=== PATIENT | male | born 1960 | race Caucasian/White ===

== ENCOUNTER 2023-01-09 13:41 | Outpatient (CLI) | payer BC, SELFPAY ==
--- NOTE | 2023-01-09 14:28 | ECG_ITS ---
Measurements Intervals [place] Rate: 78 P: 40 MO: 153 QRS: -26 QRSD: 93 T: 3 QT: 371 QTc: 423 Interpretive Statements SINUS RHYTHM WITH OCCASIONAL VENTRICULAR PREMATURE COMPLEXES POSSIBLE LEFT ATRIAL ENLARGEMENT [-0.1mV P WAVE IN V1/V2] BORDERLINE LEFT AXIS DEVIATION [QRS AXIS < -20] INCOMPLETE RIGHT BUNDLE BRANCH BLOCK [90+ ms QRS DURATION, TERMINAL R IN V1/V2, 40+ ms S IN I/aVL/V4/V5/V6] NO PREVIOUS ECG AVAILABLE FOR COMPARISON Electronically Signed On 01-09-2023 16:03:57 CDT by Bette Ríos M.D.
[2023-01-09 14:59] LABS: Basophils Absolute Auto 0.1 K/mm3 (0.0-0.1); Basophils Percent Auto 0.9 % (0.2-1.2); Eosinophils Absolute Auto 0.2 K/mm3 (0-0.3); Eosinophils Percent Auto 3.7 % (0-4.4); Hematocrit 42.5 % (42.0-52.0); Immature Granulocyte Absolute 0.02 K/mm3 (0.00-0.031); Immature Granulocyte Percent A 0.3 % (0-0.5); Lymphocytes Absolute Auto 1.69 K/mm3 (0.9-3.2); Lymphocytes Percent Auto 25.8 % (18.3-44.2); Mean Corpuscular HGB Conc 32.9 g/dl (32-36); Mean Corpuscular Hemoglobin 28.9 pg (26-34); Mean Corpuscular Volume 87.8 fl (80-100); Mean Platelet Volume 9.7 fl (7.4-10.4); Monocytes Absolute Auto 0.8 K/mm3 (0.1-0.6); Monocytes Percent Auto 12.2 % (2.6-8.5); Neutrophils Absolute Auto 3.7 K/mm3 (1.3-6.7); Neutrophils Percent Auto 57.1 % (45.5-73.1); Platelet Count Result 245 k/mm3 (150-375); Red Blood Count 4.84 M/mm3 (4.6-6.20); Red Cell Distribution Width 15.3 % (11.5-14.5); White Blood Count 6.6 K/mm3 (4.5-10.0)
[2023-01-09 15:11] LABS: Urine Cotinine NEGATIVE
[2023-01-09 15:21] LABS: Albumin Level 4.6 g/dL (3.5-5.1); Anion Gap 8 mmol/L (8-16); Blood Urea Nitrogen 14 mg/dL (9-20); Calcium 9.2 mg/dL (8.4-10.2); Carbon Dioxide 26 mmol/L (22-30); Chloride 102 mmol/L (98-107); Estimated Glomerular Filt Rate > 60; Glucose 92 mg/dL (65-110); Potassium 3.8 mmol/L (3.4-5.0); Sodium 136 mmol/L (137-145)
[2023-01-09 17:41] LABS: Hemoglobin A1C 5.6 % (<5.7)
== END 2023-01-09 13:42 | disposition home or self-care (01) ==
LOC: ANHSURGERY 13:48
PROVIDERS: Visit Provider Orthopaedic Surgery
DX: M17.11 Unilateral primary osteoarthritis, right knee (principal); Z01.818 Encounter for other preprocedural examination; R94.31 Abnormal electrocardiogram [ECG] [EKG]
CPT/HCPCS: 80048; 80307; 82040; 83036; 85025; 87081; 93005

== ENCOUNTER 2023-01-27 01:22 | Day surgery (SDC) | payer BC, SELFPAY ==
--- NOTE | 2023-01-09 13:18 | PC.NURSE ---
Addendum entered by Kelly Rubalcava RN 01/09/23 14:17: PT AWARE THAT IT IS OK TO TAKE TYLENOL DAY OF SURGERY IF NEEDED Original Note: PRE-OP INSTRUCTIONS, PLEASE READ CAREFULLY Report to the Outpatient Waiting Room, entrance under the green pavilion located off [facility], at time _0600_ on date _01/27/23_. Planned Procedure Time: _0730_. PACK A SMALL OVERNIGHT BAG AND LEAVE IN THE CAR ALONG WITH YOUR WALKER Time changes happen often and if your time is changed the preop area will call you the afternoon before. - You and your visitor will be asked to self-screen and do not enter if you have any COVID symptoms. - A mask is optional within the hospital at this time. -VISITING HOURS 8AM-8PM Patients may have clear liquids (water, carbonated beverages, clear teas, apple juice) until 3 hours prior to surgery (0430 AM) with a maximum of 20 ounces. - No food from midnight until time of surgery Take the following medications with a SIP of water the morning of surgery: _NONE_ DO NOT STOP ANY OF YOUR OTHER PRESCRIPTION MEDICATIONS PRIOR TO SURGERY ?EXCEPT THE FOLLOWING Medications to discontinue per ANESTHESIA -_MULTIVITAMIN & PRESERVISION 3 DAYS PRIOR TO SURGERY, Date to take last dose 01/23/23_ Please no make-up, nail montenegrin, hairspray, perfume, deodorant, or body powder the day of surgery. No jewelry (including any body piercings) or valuables the day of surgery, leave them at home. Please take a shower or bath the night before, or the morning of, surgery with an antibacterial soap. Wear comfortable, loose fitting clothing. - Jewelry must be removed prior to entering the operating room. Rings and piercings that are not removed may be cut off. - The hospital will not accept responsibility for valuables. - Please leave all valuables, including medications, at home the day of surgery. If you are going home after surgery, a licensed grab driver must drive you home. - NO public transportation without another adult if you receive anesthesia. - We recommend that an adult stay with you for 24 hours following discharge. - We also recommend that you do not drive, make important decision, drink alcoholic beverages, or take any drugs that were not prescribed by your health care provider for at least 24 hours after your discharge time. Follow any additional instructions given to you from your surgeon. If you or anyone in your household have experienced Covid symptoms in the past week, please notify your surgeon or the nurse liaison at the phone number below for possible testing. Instructions given to _PATIENT_and asked if any additional questions and then verbalized understanding. Patient advised to call surgeon office or pre surgery nurse liaison [phone] if any additional questions.
[2023-01-09 14:06] VITALS: BP 140/90; PULSE 84; RESP 20; TEMP 36.6; O2SAT 98; BMI 30.3
--- NOTE | 2023-01-24 16:06 | WPDANESEPPF ---
Anes - Initial Pre Proc Eval Procedure: Operation Date: 01/27/23 07:30 Proposed Procedures p Right Total Knee Arthroplasty - Osmany Batres MD Date/Time: 01/24/23 16:06 Surgeon: Osmany Batres MD Pre Op Diagnosis: O A Right Knee Patient Data Age: 62 Gender: M Height: 1.65 m Weight: 82.7 kg Last Vital Signs Temp 36.6 C 01/09/23 14:06 Pulse 84 01/09/23 14:06 Resp 20 01/09/23 14:06 BP 140/90 01/09/23 14:06 Pulse Ox 98 01/09/23 14:06 O2 Del Method Room Air 01/09/23 14:06 Allergies Allergy/AdvReac Type Severity Reaction Status Date / Time No Known Allergies Allergy Verified 01/27/23 06:03 Home Medications Medication Instructions Recorded Confirmed Type acetaminophen 500 mg tablet 500 mg PO Q6H PRN Pain 01/09/23 01/27/23 History camphor-menthol 0.2 %-3.5 % 1 applic topical BID PRN Pain 01/09/23 01/27/23 History topical gel lisinopril 2.5 mg tablet 1.25 mg BID 01/09/23 01/27/23 History multivitamin 1 tablet PO DAILY 01/09/23 01/27/23 History omeprazole 20 mg capsule,delayed 20 mg QAM 01/09/23 01/27/23 History release rosuvastatin 10 mg tablet 10 mg HS 01/09/23 01/27/23 History vit C 250 mg-E 90 mg-zinc 40 1 tablet PO QAM AND QPM 01/09/23 01/27/23 History mg-copper 1 hx-[id number]-tbqqvh chew tablet (PreserVision AREDS-2) ECG: Date of Service: 01/09/23 Procedure(s): CA 12 lead EKG Accession Number(s): [id number] cc: ~ ? Measurements Intervals? [place]? Rate: ? 78 ? P:? 40 OK: ? 153? QRS:? -26 QRSD: ? 93 ? T:? 3 QT: ? 371? QTc:? 423? Interpretive Statements SINUS RHYTHM WITH OCCASIONAL VENTRICULAR PREMATURE COMPLEXES POSSIBLE LEFT ATRIAL ENLARGEMENT [-0.1mV P WAVE IN V1/V2] BORDERLINE LEFT AXIS DEVIATION [QRS AXIS < -20] INCOMPLETE RIGHT BUNDLE BRANCH BLOCK [90+ ms QRS DURATION, TERMINAL R IN V1/V2, 40+ ms S IN I/aVL/V4/V5/V6] NO PREVIOUS ECG AVAILABLE FOR COMPARISON Electronically Signed On 01-09-2023 16:03:57 CDT by Bette Ríos M.D. Patient hx anesthesia problems: none Family hx anesthesia problems: none Results Review: All pre-operative results and documents have been reviewed as part of the pre-operative evaluation. [facility] Past Medical History Medical History (Updated 01/26/23 @ 11:01 by Osmany Batres MD) Chronic GERD HTN (hypertension) Hyperlipidemia Obesity Osteoarthritis Social History Social History Smoking status: Never smoker Second hand tobacco smoke exposure: No Additional smoking assessment comments: PT DENIES ALL FORMS OF TOBACCO USE Alcohol intake: current Drinks per week: 8 Substance use: never Substance use type: does not use Living arrangements: with family Spiritual care concerns: No Anes - Eval Final PreProcedure Day of Procedure 01/24/23 16:06 Patient weight: obese Heart: regular rate and rhythm Lungs: clear to auscultation and normal air movement Airway: Mallampati scale class II Neurological: alert and oriented Last oral intake: >/= 8 hours ASA classification: III Emergent: no Anesthetic plan: proceed Anesthesia type and monitoring: general LMA Results Review: All pre-operative results and documents have been reviewed as part of the pre-operative evaluation. Informed Consent: The patient's anesthetic plan and its attendant risks and benefits were discussed with the patient/family/POA. Questions were solicited and answers provided to the satisfaction of the patient/family/POA.
--- NOTE | 2023-01-26 10:53 | PM.IMHP ---
H&P: HPI History of Present Illness Date/Time: 01/26/23 10:53 Chief Complaint: Severe osteoarthritis right knee Narrative: patient is a 62-year-old gentleman who has a many year history of progressively worsening osteoarthritis symptoms in the right knee. He has emft-wz-skfi medial compartment osteoarthritis with significant varus deformity due to bone where grooving and sclerosis in the medial compartment. He has used prescription strength ibuprofen and naproxen. He has had cortisone shots and viscosupplementation injections over the years and they have all stopped helping. He is very active and works at the [employer] which is physical work and he he has been miserable with severe symptoms. He presents for total knee replacement Review of Systems Review of Systems: his past medical history is significant for basal cell skin cancer, hypertension and acid reflux. In [facility] Past Medical History Medical History (Updated 01/26/23 @ 11:01 by Osmany Batres MD) Chronic GERD HTN (hypertension) Hyperlipidemia Obesity Osteoarthritis Social History Social History Smoking status: Never smoker Second hand tobacco smoke exposure: No Additional smoking assessment comments: PT DENIES ALL FORMS OF TOBACCO USE Alcohol intake: current Drinks per week: 8 Substance use: never Substance use type: does not use Living arrangements: with family Spiritual care concerns: No Meds Home Medications and Allergies Home Medications Medication Instructions Recorded Confirmed Type acetaminophen 500 mg tablet 500 mg PO Q6H PRN Pain 01/09/23 01/09/23 History camphor-menthol 0.2 %-3.5 % 1 applic topical BID PRN Pain 01/09/23 01/09/23 History topical gel lisinopril 2.5 mg tablet 1.25 mg BID 01/09/23 01/09/23 History multivitamin 1 tablet PO DAILY 01/09/23 01/09/23 History omeprazole 20 mg capsule,delayed 20 mg QAM 01/09/23 01/09/23 History release rosuvastatin 10 mg tablet 10 mg HS 01/09/23 01/09/23 History vit C 250 mg-E 90 mg-zinc 40 1 tablet PO QAM AND QPM 01/09/23 01/09/23 History mg-copper 1 tu-ltefrr-bozfcl chew tablet (PreserVision AREDS-2) Allergies Allergy/AdvReac Type Severity Reaction Status Date / Time No Known Allergies Allergy Verified 01/09/23 13:59 Exam Extrem: Other: on examination this gentleman is a very pleasant male in no apparent distress. He is 5 ft 5 in in height 179 lb BMI of 29.8. He rates his pain at 9/10. He has range of motion of the right knee from 7-135 degrees with varus deformity. Trace effusion. Moderate medial joint line tenderness. Pain at extremes of movement. Normal stability. Hip range of motion was full and without discomfort and negative Stinchfield maneuver. 5/5 quadriceps strength. 2+ dorsalis pedis and posterior tibial artery pulses were palpable he had normal sensation right lower extremity. The skin looked normal. Heart auscultation and pulmonary auscultation findings will be documented on morning of admission. Her H&P: Results ECG Interpretation: EKG is outlined in the [facility] electronic medical record performed on 01/09/2023. Sat is rhythm with occasional ventricular PVCs possible left atrial enlargement borderline left axis deviation incomplete right bundle branch block Assessment and Plan Assessment and plan (1) Localized osteoarthritis of knee: Code(s): M17.10 - Unilateral primary osteoarthritis, unspecified knee Status: Acute Plan x-rays of right knee three views demonstrate advanced txdx-ky-eawr medial compartment osteoarthritis with right knee was sclerosis grooving of the opposing surfaces of medial femoral condyle medial tibial plateau and significant varus deformity anatomic axis 8? varus Impression: Patient has advanced medial compartment osteoarthritis of right knee and presents for right total knee replacement. Preop evaluation showed a negative Staph will aureus screen on na
[2023-01-27] VITALS (14 sets, daily range): BP systolic 92–136; BP diastolic 55–98; PULSE 72–100; RESP 14–18; TEMP 36.1–37.2; O2SAT 91–98
--- NOTE | ~2023-01-27 | XR_ITS ---
EXAMINATION: [id number] DATE: 01/27/2023 10:56 CDT INDICATION: Right total knee arthroplasty TECHNIQUE: 2 views right knee FINDINGS: There is a right total knee arthroplasty in expected position. Subcutaneous gas with fluid and air in the joint are consistent with recent surgery. No evidence of periprosthetic fracture. IMPRESSION: 1. Recent right total knee arthroplasty. Reviewed, dictated and finalized at location B.
[2023-01-27] MEDS: LACTATED RINGERS 1,000 ML 30 ML IV CONT ×2 (06:27→10:48)
[2023-01-27] MEDS: ACETAMINOPHEN 500 MG TABLET 1000 MG PO ×3 (06:28→17:52)
[2023-01-27] MEDS: VANCOMYCIN 1,250 MG/NS 250 ML BAG 166.67 MG IVPB (06:32)
[2023-01-27] MEDS: TRANEXAMIC ACID 1,000MG/ISO100 1,000 MG/100 ML BAG 200 MG IVPB (07:03)
--- NOTE | 2023-01-27 07:09 | WPDHPUPDATE1 ---
History and Physical Update Update Date/Time: 01/27/23 07:09 History and Physical has been reviewed, including an updated exam of the patient. There are NO changes in the patient's condition. Risks, benefits, and alternatives have been discussed and questions answered. Patient agrees to proceed with procedure.
[2023-01-27] MEDS: ceFAZolin 2 GM/D5W 50 ML 2 GM/50 ML BAG IVPB (07:25)
[2023-01-27] MEDS: ceFAZolin SODIUM 1 GM VIAL 3 GM (08:01)
[2023-01-27] MEDS: GENTAMICIN BONE CEMENT REFOBACIN 1 EACH TOPICAL (09:22)
[2023-01-27] MEDS: TRANEXAMIC ACID 1,000 MG/10 ML AMPUL 1000 MG IV PUSH (10:06)
[2023-01-27] MEDS: ceFAZolin SODIUM 1 GM VIAL 2 GM IV PUSH (10:06)
[2023-01-27] MEDS: KETOROLAC 15 MG/ML VIAL (*BKC) IV PUSH ×3 (10:13→23:25)
--- NOTE | 2023-01-27 10:54 | PM.OP ---
Procedure Note - Brief Procedure Note - Brief Date of procedure: 01/27/23 O A Right Knee Procedure performed: Right total knee arthroplasty Surgeon: TOY Reid Findings: 62-year-old male who underwent right total knee arthroplasty on 01/27. I was involved procedure including positioning patient on the OR table in 1st clinical medical assistant to time surgery. Total time spent was 3 hours
--- NOTE | 2023-01-27 10:56 | W.PM.PROC2 ---
Procedure Note - Detailed Date of Procedure 01/27/23 Pre-op Diagnosis O A Right Knee Post-op Diagnosis Same Procedure Performed Right total knee arthroplasty Surgeon Osmany Batres MD [employer] [facility] Anesthesia General Description of Procedure Patient was brought to the operating room and general anesthesia was administered. He received 2 g Ancef weight based vancomycin 1 g of tranexamic acid preoperatively the right knee prepped draped usual fashion. He had about a 7 degree flexion contracture under anesthesia. Limb was exsanguinated tourniquet elevated to 250 mmHg. A 7 in longitudinal midline incision was used in a vastus medialis splitting approach utilized splitting the vastus medialis at the superior pole of patella. Infrapatellar and suprapatellar fat pads were excised a quadriceps synovectomy carried out. Minimal lateral facetectomy performed. Medial proximal osteophytes removed. Articular cartilage at the apex and lateral facet was normal with chondromalacia in the medial facet. His patella was smaller in size and felt it would be most appropriate for non resurfacing in this active gentleman. A guide marcia was inserted down the femoral canal after aspiration of canal contents using the 5 degree valgus cutting bushing 9 mm of bone removed the distal femur. This removed about 8 mm medially. There was complete eburnation of the medial femoral condyle medial tibial plateau. Next the tibia was cut. Because of his significant varus deformity I tried to make cut at about 1 degree of varus and this removed about a mm of bone from the low point of the medial tibial plateau and removed about 11 laterally. Meniscal remnants were excised and PCL recessed. Prominent medial tibial osteophyte was removed without capsule release at this point. The at 90?, flexion gap measured 9 mm medially and 14 mm laterally. The femoral sizing guide was applied the distal femur set at 5? of external rotation which matched Whitesides line and the posterior referencing pinholes were placed. The 67.5 vanguard cutting block was applied AP and chamfer cuts were made. This gave a line to line fit with the anterior cortex. Unfortunately though the 67.5 was a little bit too wide. The anterior femur was very narrow. I elected to downsize to a 65 which was done after introducing a couple of degrees of flexion into the distal femoral cutting block and this was pinned in placed in the AP and chamfer cuts revisited. The 65 fit line to line medial to lateral and no significant notch occurred anteriorly. The tibia was sized to a 71 which fit line to line posterolateral to anteromedial. Seventy-five was overhanging. The 71 was punched in position a proper rotation and we trialed and the 12 mm insert gave appropriate stability at 90? of flexion with 1 mm medial opening and 2 mm of lateral opening with the Qiu elevator. In extension the knee had no play medially and lacked a few degrees of extension. We removed residual posteromedial tibial osteophyte peeling capsule only enough that expose the posteromedial osteophyte. Central posterior capsular release was performed from the distal femur we checked for residual posterior femoral osteophytes and there really were tendon. On trialing again the knee had about 1 mm of opening to valgus stress 2-3 laterally and still had a fairly positive bounce and with the arthrotomy towel clipped closed a more prominent bounce with no medial opening. Therefore, I elected to remove an additional 1 mm of bone from the distal femur. Chamfer cuts revisited and on read trialing now the knee had 2 mm of opening to valgus stress came out to full extension with negative bounce and with the arthrotomy closed still came out to full extension with about 1 mm medial opening excellent anterior posterior drawer stability in all positions. Lateral opening was 3 mm. A step drill was used to make multiple perforations in the distal femur and tibial plateau and the
[2023-01-27] MEDS: ONDANSETRON INJ 4 MG/2 ML VIAL IV PUSH (11:19)
[2023-01-27] MEDS: SCOPOLAMINE 1.5 MG PATCH TRANSDERM (11:40)
[2023-01-27] MEDS: HALOPERIDOL LACTATE 5 MG/ML VIAL 1 MG IV PUSH (11:40)
--- NOTE | 2023-01-27 12:35 | ADMGEN ---
This patient, Marvin Domingo, was admitted to Medical Room 255-01. Patient/family oriented to hospital policies and general routines including ID bracelet, bed and alarms, visiting hours, pain management, procedures, bathroom and other care routines, personal items, smoking policy, room service/diet, and visiting hours. Information on how to activate the Rapid Response Team has been discussed. Patient/Family are encouraged to report perceived risks to care and to ask questions if they do not understand what they are told or what they should do.
[2023-01-27] MEDS: oxyCODONE HCL (*CRX) 5 MG TAB IR PO ×3 (12:49→20:05)
[2023-01-27] MEDS: ceFAZolin 1 GM/NS 50 ML 1 GM/50 ML BAG IVPB ×2 (14:58→23:25)
[2023-01-27] MEDS: VANCOMYCIN 1,000 MG/NS 250 ML 1,000 MG/250 ML BAG 250 MG IVPB (17:52)
[2023-01-27] MEDS: SENNA/DOCUSATE SODIUM TABLET 2 TAB PO (17:53)
[2023-01-27] MEDS: ROSUVASTATIN 10 MG TABLET BY MOUTH (20:05)
[2023-01-27] MEDS: FAMOTIDINE 20 MG TABLET PO (20:05)
[2023-01-28] MEDS: oxyCODONE HCL (*CRX) 5 MG TAB IR PO ×4 (04:16→11:03)
[2023-01-28 05:12] LABS: Basophils Percent Auto 0.3 % (0.2-1.2); Eosinophils Percent Auto 0.1 % (0-4.4); Hematocrit 34.9 % (42.0-52.0); Hemoglobin 11.4 g/dL (14.0-18.0); Immature Granulocyte Absolute 0.07 K/mm3 (0.00-0.031); Immature Granulocyte Percent A 0.6 % (0-0.5); Lymphocytes Absolute Auto 1.01 K/mm3 (0.9-3.2); Lymphocytes Percent Auto 8.9 % (18.3-44.2); Mean Corpuscular HGB Conc 32.7 g/dl (32-36); Mean Corpuscular Hemoglobin 28.2 pg (26-34); Mean Corpuscular Volume 86.4 fl (80-100); Mean Platelet Volume 9.5 fl (7.4-10.4); Monocytes Absolute Auto 1.1 K/mm3 (0.1-0.6); Monocytes Percent Auto 9.7 % (2.6-8.5); Neutrophils Absolute Auto 9.1 K/mm3 (1.3-6.7); Neutrophils Percent Auto 80.4 % (45.5-73.1); Platelet Count Result 217 k/mm3 (150-375); Red Blood Count 4.04 M/mm3 (4.6-6.20); White Blood Count 11.3 K/mm3 (4.5-10.0)
[2023-01-28] MEDS: VANCOMYCIN 1,000 MG/NS 250 ML 1,000 MG/250 ML BAG 250 MG IVPB (05:12)
[2023-01-28] MEDS: ACETAMINOPHEN 500 MG TABLET 1000 MG PO ×3 (05:12→11:03)
[2023-01-28 05:24] LABS: Anion Gap 5 mmol/L (8-16); Blood Urea Nitrogen 12 mg/dL (9-20); Calcium 8.3 mg/dL (8.4-10.2); Carbon Dioxide 27 mmol/L (22-30); Chloride 103 mmol/L (98-107); Estimated CRCL calculation 84 ml/min; Estimated Glomerular Filt Rate > 60; Glucose 96 mg/dL (65-110); Potassium 3.9 mmol/L (3.4-5.0); Sodium 135 mmol/L (137-145)
[2023-01-28 06:00] VITALS: BP 103/79; PULSE 79; RESP 18; TEMP 36.6; O2SAT 97
--- NOTE | 2023-01-28 06:18 | PM.PNORT ---
Subjective Subjective Date/Time Seen: 01/28/23 06:18 Interval history: Postop day 1 patient is alert. He is afebrile vital signs are stable. Morning labs are noted. Dressing is dry and intact. Neurovascularly he is intact. Pain is well controlled. Patient was up yesterday walking with physical therapy and doing very well. He will get started on his Eliquis this morning. Plan will be to have the patient work with therapy this morning and if he continues to do well he be discharged home this morning. If he wishes he will stay till this afternoon to do a 2nd therapy session. Objective Data Vital Signs Vital Signs: Vital Signs - 24 hr 01/27/23 06:51 01/27/23 10:48 01/27/23 11:00 Temperature 36.2 C L 37.2 C Pulse Rate 72 86 84 Respiratory Rate 16 18 14 Blood Pressure 136/98 H 96/55 L 92/62 L Pulse Oximetry 97 95 97 Oxygen Delivery Room Air Simple Face Mask Simple Face Mask Oxygen Flow Rate 8 8 01/27/23 11:15 01/27/23 11:20 01/27/23 11:30 Temperature Pulse Rate 84 87 Respiratory Rate 18 14 Blood Pressure 108/69 105/71 Pulse Oximetry 98 91 94 Oxygen Delivery Simple Face Mask Room Air Nasal Cannula Oxygen Flow Rate 8 2 01/27/23 11:45 01/27/23 12:00 01/27/23 12:30 Temperature 36.1 C L Pulse Rate 89 91 92 Respiratory Rate 14 14 18 Blood Pressure 116/80 120/81 113/69 Pulse Oximetry 98 94 95 Oxygen Delivery Nasal Cannula Nasal Cannula Oxygen Flow Rate 2 2 01/27/23 12:45 01/27/23 13:15 01/27/23 14:24 Temperature 36.4 C 36.6 C Pulse Rate 93 86 Respiratory Rate 14 16 Blood Pressure 114/78 121/82 Pulse Oximetry 96 98 Oxygen Delivery Room Air Oxygen Flow Rate 01/27/23 14:15 01/27/23 18:15 01/27/23 22:17 Temperature 36.4 C 36.6 C 36.2 C L Pulse Rate 98 100 100 Respiratory Rate 14 16 16 Blood Pressure 117/80 134/94 H 121/77 Pulse Oximetry 96 98 94 Oxygen Delivery Oxygen Flow Rate Intake/Output Intake/Output: Intake & Output 01/25/23 01/26/23 01/27/2323 23:59 23:59 23:59 23:59 Intake Total 1780 Balance 1780 Meds/Results Medications: Active Medications Generic Name Dose Route Start Last Admin Trade Name Freq PRN Reason Stop Dose Admin Acetaminophen 1,000 mg 01/27/23 12:11 01/28/23 05:12 Acetaminophen 500 Mg Tablet PO 1,000 mg Q6H LINDA Administration Apixaban 2.5 mg 01/28/23 09:00 Apixaban 2.5 Mg Tablet PO 02/08/23 21:01 Q12HR PENDING SALE TO [facility] Celecoxib 200 mg 01/28/23 08:00 Celecoxib 200 Mg Capsule PO DAILY@0800 PENDING SALE TO [facility] Cephalexin HCl 500 mg 01/28/23 12:00 Cephalexin 500 Mg Capsule PO Q6HR PENDING SALE TO [facility] Diphenhydramine HCl 25 mg 01/27/23 12:11 Diphenhydramine Hcl Inj 50 Mg/Ml Vial IV PUSH Q6H PRN Itching Famotidine 20 mg 01/27/23 21:00 01/27/23 20:05 Famotidine 20 Mg Tablet PO 20 mg Q12HR PENDING SALE TO [facility] Administration Cefazolin Sodium 1 gm in 50 mls @ 100 mls/hr 01/27/23 15:00 01/27/23 23:55 Ancef 1 Gm/Ns 50 Ml IVPB 01/28/23 07:29 Infused Q8H PENDING SALE TO [facility] Infusion Vancomycin HCl 1,000 mg in 250 mls @ 250 mls/hr 01/27/23 18:00 01/28/23 05:12 Vancomycin 1,000 Mg/Ns 250 Ml IVPB 01/28/23 06:59 250 mls/hr Q12H PENDING SALE TO [facility] Administration Magnesium Hydroxide 30 ml 01/27/23 12:11 Magnesium Hydroxide Susp 30 Ml Udc PO BID PRN Constipation Naloxone HCl 0.1 mg 01/27/23 12:11 Naloxone Hcl 0.4 Mg/Ml Vial IV PUSH Q2M PRN Opiate Reversal Ondansetron HCl 4 mg 01/27/23 12:11 Ondansetron Inj 4 Mg/2 Ml Vial IV PUSH Q4H PRN Nausea And Vomiting Oxycodone HCl 5 mg 01/27/23 13:00 01/28/23 04:16 Oxycodone Hcl (*Crx) 5 Mg Tab Ir PO 5 mg Q4HR LINDA Administration Oxycodone HCl 5 mg 01/27/23 12:11 Oxycodone Hcl (*Crx) 5 Mg Tab Ir PO Q4H PRN Pain Rated 4-6 Polyethylene Glycol 17 gm 01/28/23 09:00 Polyethylene Glycol 3350 17 Gm Powd.Pack PO QAM LINDA Rosuvastatin Calcium 10 mg 01/27/23 21:00 01/27/23 20:05 Rosuvastatin 10 M
[2023-01-28] MEDS: ceFAZolin 1 GM/NS 50 ML 1 GM/50 ML BAG IVPB (06:21)
--- NOTE | 2023-01-28 06:22 | PM.DS ---
DS: Admitting Diagnosis Discharge Date 01/28 Admitting Diagnosis Right knee DJD DS: Discharge Diagnosis Discharge Diagnosis (1) Localized osteoarthritis of knee: Code(s): M17.10 - Unilateral primary osteoarthritis, unspecified knee Status: Acute DS: Summary Hospital Course Hospital Course: 62-year-old male who underwent right total knee arthroplasty on 01/27. Underwent the procedure without complications. Postoperatively he has been afebrile vital signs are stable. Neurovascularly he is intact. He is weight-bearing as tolerated. He was up walking the day of surgery with physical therapy and is comfortable. Pain overall is well controlled with scheduled Tylenol as well as oxycodone 5 mg. He is on Celebrex 200 mg once a day. He also go home on a week ago Keflex. He also go home with his Eliquis. Patient was placed on Senokot MiraLax as well. Patient was advised to keep leg elevated home prevent swelling but do his exercises basis. He is to limit sitting in the chair to no more than 20 minutes at a time 4 times a day. He has outpatient therapy starting on . Patient was advised any questions or concerns he is to call the office otherwise we will see him at his appointed date. Time Spent with Patient Time attestation: Total time spent providing and/or coordinating discharge services: DS: Data Data Completed and Pending Labs on day of discharge: Labs from last 24 hours 01/28/23 01/27/23 04:58 06:19 WBC 11.3 H RBC 4.04 L Hgb 11.4 L Hct 34.9 L MCV 86.4 MCH 28.2 MCHC 32.7 RDW 16.0 H Plt Count 217 MPV 9.5 Immature Gran % (Auto) 0.6 H Neut % (Auto) 80.4 H Lymph % (Auto) 8.9 L Jay % (Auto) 9.7 H Eos % (Auto) 0.1 Baso % (Auto) 0.3 Lymph # (Auto) 1.01 Jay # (Auto) 1.1 H Eos # (Auto) 0.0 Baso # (Auto) 0.0 Abs Immat Gran (auto) 0.07 H Absolute Neuts (auto) 9.1 H Absolute Nucleated RBC 0.0 Nucleated RBC % 0.0 Sodium 135 L Potassium 3.9 Chloride 103 Carbon Dioxide 27 Anion Gap 5 L BUN 12 Creatinine 0.80 Estim Creat Clear Calc 84 Estimated GFR > 60 Glucose 96 Calcium 8.3 L Blood Type A Positive Antibody Screen Negative Discharge Plan Discharge Patient Disposition: Home, Self-Care Discharge Instructions: OSMANY BATRES M.D [facility], [place] [id number] [place] [address] POST-OPERATIVE DISCHARGE INSTRUCTIONS TOTAL KNEE ARTHROPLASTY 1. When resting, lie on back with leg elevated above heart to minimize swelling. Significant swelling could indicate a blood clot and if this occurs call the office (or go to the ER) to have a venous ultrasound. 2. Do exercise 5 times a day. 3. Do not sit with leg down except for meals. 4. Wound Care: Nursing will give additional dressings at discharge. Patient to change dressing at home 1 week from surgery, then maintain until seen in office. 5. May shower with dressing in place. 6. Follow weight bearing status instructions. IMPORTANT: Remember not to sit in the chair for more than 30 minutes at a time. As a rule, during the first 14 days after surgery, only sit in the chair to work on the chair knee bending stretch exercise, for meals or for use of the restroom. Sitting in the chair promotes significant swelling in the knee and leg which will make the knee stiff and more painful and which simulates having a blood clot in the veins of the leg. If this type of significant diffuse swelling occurs, an ultrasound at the hospital will be necessary to rule out a blood clot. Be up walking around with the walker for a few minutes every hour while awake and then rest laying on your back on the couch or in bed with your leg elevated on cushions or pillows. Do not rest in the chair. Patient Instructions: Pain Management (DC) Follow-up/Referrals: Osmany Batres MD [Physician] - Keep Reg. Scheduled Appt. D
[2023-01-28] MEDS: SENNA/DOCUSATE SODIUM TABLET 2 TAB PO (08:08)
[2023-01-28] MEDS: CELECOXIB 200 MG CAPSULE PO (08:08)
[2023-01-28] MEDS: polyethylene glycoL 3350 17 GM POWD.PACK PO (08:08)
[2023-01-28] MEDS: APIXABAN 2.5 MG TABLET PO (08:08)
[2023-01-28] MEDS: FAMOTIDINE 20 MG TABLET PO (08:08)
--- NOTE | 2023-01-28 08:27 | PCPTNOTE ---
Attempted to see patient for PT, however patient was eating breakfast.
== END 2023-01-28 11:14 | disposition home or self-care (01) ==
LOC: ANHSURGERY 05:53 → ANH2MED 12:41
PROVIDERS: Physician Assistant Surgical; Visit Provider Orthopaedic Surgery
PROC: (CPT 27447; principal; 2023-01-27 07:30)
DX: M17.11 Unilateral primary osteoarthritis, right knee (principal); I10 Essential (primary) hypertension; E78.5 Hyperlipidemia, unspecified; K21.9 Gastro-esophageal reflux disease without esophagitis; E66.9 Obesity, unspecified; Z68.30 Body mass index [BMI] 30.0-30.9, adult
CPT/HCPCS: 27447; 36415; 73560; 80048; 85025; 86850; 86900; 86901; 97110; 97116; 97161; 97165; 97535; A9270; C1713; C1776; J0171; J0690; J1100; J1170; J1630; J1885; J2250; J2270; J2370; J2405; J2704; J2710; J2795; J3010; J3370; J7120

== ENCOUNTER 2023-03-12 11:24 | Outpatient (CLI) | payer BC, SELFPAY ==
--- NOTE | ~2023-03-12 | US_ITS ---
EXAMINATION: US venous doppler LE RT DATE: 03/12/2023 12:05 INDICATION: Right lower limb swelling TECHNIQUE: Reyes scale images without and with compression and Doppler images of the right lower extre mity veins were obtained. COMPARISON: None FINDINGS: The right common femoral vein, profunda femoral vein, femoral vein, popliteal vein, peronea l trunk, posterior tibial veins, and greater saphenous vein are patent. IMPRESSION: 1. Patent right lower extremity veins. No evidence of deep venous thrombosis. Reviewed, dictated and finalized at location []
== END 2023-03-12 11:25 | disposition home or self-care (01) ==
PROVIDERS: Visit Provider Orthopaedic Surgery
DX: R60.0 Localized edema (principal)
CPT/HCPCS: 93971

== ENCOUNTER 2023-05-07 11:09 | Outpatient (CLI) | payer BC, SELFPAY ==
[2023-05-07 11:59] LABS: Basophils Percent Auto 0.7 % (0.2-1.2); Eosinophils Absolute Auto 0.1 K/mm3 (0-0.3); Hematocrit 41.3 % (42.0-52.0); Hemoglobin 13.2 g/dL (14.0-18.0); Immature Granulocyte Absolute 0.01 K/mm3 (0.00-0.031); Immature Granulocyte Percent A 0.2 % (0-0.5); Lymphocytes Absolute Auto 1.34 K/mm3 (0.9-3.2); Mean Corpuscular Hemoglobin 26.8 pg (26-34); Mean Corpuscular Volume 83.8 fl (80-100); Mean Platelet Volume 10.2 fl (7.4-10.4); Monocytes Absolute Auto 0.6 K/mm3 (0.1-0.6); Monocytes Percent Auto 10.5 % (2.6-8.5); Neutrophils Absolute Auto 3.9 K/mm3 (1.3-6.7); Neutrophils Percent Auto 64.6 % (45.5-73.1); Platelet Count Result 268 k/mm3 (150-375); Red Blood Count 4.93 M/mm3 (4.6-6.20); Red Cell Distribution Width 15.4 % (11.5-14.5); White Blood Count 6.1 K/mm3 (4.5-10.0)
[2023-05-07 12:10] LABS: Urine Cotinine NEGATIVE
[2023-05-07 12:17] LABS: Albumin Level 4.7 g/dL (3.5-5.1); Anion Gap 10 mmol/L (8-16); Blood Urea Nitrogen 15 mg/dL (9-20); Calcium 9.7 mg/dL (8.4-10.2); Carbon Dioxide 23 mmol/L (22-30); Chloride 102 mmol/L (98-107); Estimated Glomerular Filt Rate > 60; Glucose 93 mg/dL (65-110); Potassium 3.9 mmol/L (3.4-5.0); Sodium 135 mmol/L (137-145)
[2023-05-07 12:19] LABS: Hemoglobin A1C 5.7 % (<5.7)
== END 2023-05-07 11:10 | disposition home or self-care (01) ==
LOC: ANHSURGERY 11:13
PROVIDERS: Visit Provider Orthopaedic Surgery
DX: M17.12 Unilateral primary osteoarthritis, left knee (principal); Z01.818 Encounter for other preprocedural examination
CPT/HCPCS: 80048; 80307; 82040; 83036; 85025; 86850; 86900; 86901; 87081

== ENCOUNTER 2023-05-14 01:29 | Day surgery (SDC) | payer BC, SELFPAY ==
[2023-05-06 13:32] VITALS: BMI 28.3
--- NOTE | 2023-05-06 13:50 | PC.NURSE ---
Report to the Outpatient Waiting Room, entrance under the green pavilion located off [facility], at time __10:00AM on date __05/14/23 . Planned Procedure Time: __12:00PM . Time changes happen often and if your time is changed the preop area will call you the afternoon before. - You and your visitor will be asked to self-screen and do not enter if you have any COVID symptoms. - A mask is optional within the hospital at this time. Patients may have clear liquids (water, carbonated beverages, clear teas, apple juice) until 3 hours prior to surgery with a maximum of 20 ounces. - No food from midnight until time of surgery Take the following medications with a SIP of water the morning of surgery: ___NONE DO NOT STOP ANY OF YOUR OTHER PRESCRIPTION MEDICATIONS PRIOR TO SURGERY ?EXCEPT THE FOLLOWING Medications to discontinue per physician ___HOLD ALL VITAMINS/SUPPLEMENTS 7 DAYS PRE-OP PER DR HAMMOND(PER PATIENT) Date to take last dose____05/07/23 Please no make-up, nail swazi, hairspray, perfume, deodorant, or body powder the day of surgery. No jewelry (including any body piercings) or valuables the day of surgery, leave them at home. Please take a shower or bath the night before, or the morning of, surgery with an antibacterial soap. Wear comfortable, loose fitting clothing. - Jewelry must be removed prior to entering the operating room. Rings and piercings that are not removed may be cut off. - The hospital will not accept responsibility for valuables. - Please leave all valuables, including medications, at home the day of surgery. If you are going home after surgery, a licensed armor reconnaissance vehicle driver must drive you home. - NO public transportation without another adult if you receive anesthesia. - We recommend that an adult stay with you for 24 hours following discharge. - We also recommend that you do not drive, make important decision, drink alcoholic beverages, or take any drugs that were not prescribed by your health care provider for at least 24 hours after your discharge time. Follow any additional instructions given to you from your surgeon. If you or anyone in your household have experienced Covid symptoms in the past week, please notify your surgeon or the nurse liaison at the phone number below for possible testing. Telephone instructions given to _PATIENT and asked if any additional questions and then verbalized understanding. Patient advised to call surgeon office or pre surgery nurse liaison [phone] if any additional questions.
[2023-05-14] VITALS (14 sets, daily range): BP systolic 120–151; BP diastolic 77–101; PULSE 89–105; RESP 13–18; TEMP 36–36.8; O2SAT 91–99
--- NOTE | ~2023-05-14 | XR_ITS ---
EXAM: [id number] DATE: 05/14/2023 16:03 HISTORY: LT TOTAL KNEE . COMPARISON: None available. FINDINGS/IMPRESSION: Expected postsurgical changes status post total knee arthroplasty, with no radio graphic evidence of procedure or hardware related complication. Reviewed, dictated and finalized at location K.
--- NOTE | 2023-05-14 08:09 | PM.IMHP ---
H&P: HPI History of Present Illness Date/Time: 05/14/23 08:09 Chief Complaint: Left knee DJD Narrative: 61-year-old male who presents today for a left total knee arthroplasty. He underwent right total knee arthroplasty in January of this year. He had uneventful recovery and is doing very well. He is very happy with his knee replacement. He has severe medial compartment osteoarthritis in the left knee. He is having continued symptoms in the knee and is ready proceed with total knee arthroplasty on the left. Review of Systems Review of Systems: All systems reviewed & are unremarkable except as noted in HPI and below PMFSH Past Medical History Medical History (Updated 01/26/23 @ 11:01 by Osmany Batres MD) Chronic GERD HTN (hypertension) Hyperlipidemia Obesity Osteoarthritis Social History Social History Smoking status: Never smoker Second hand tobacco smoke exposure: No Additional smoking assessment comments: PT DENIES ALL FORMS OF TOBACCO USE Alcohol intake: current Drinks per week: 2 Substance use: never Substance use type: does not use Lack of Transportation: No Lack of Food: Never True Current Housing: I Have Housing Concerned About Future Housing: No Difficulty Paying Gas/Electric Bills: No Difficulty Paying for Meds: No Currently Unemployed: No Education: Associate Degree Difficulty w/ Childcare or Family Care: No Living arrangements: with family Additional living arrangements comments: Spiritual care concerns: No Meds Home Medications and Allergies Home Medications Medication Instructions Recorded Confirmed Type lisinopril 2.5 mg tablet 1.25 mg PO BID 01/09/23 05/06/23 History multivitamin 1 tablet PO DAILY 01/09/23 05/06/23 History omeprazole 20 mg capsule,delayed 20 mg PO QAM 01/09/23 05/06/23 History release rosuvastatin 10 mg tablet 10 mg PO HS 01/09/23 05/06/23 History vit C 250 mg-E 90 mg-zinc 40 1 tablet PO QAM AND QPM 01/09/23 05/06/23 History mg-copper 1 ks-lwsydo-orfawn chew tablet (PreserVision AREDS-2) acetaminophen 500 mg tablet 1,000 mg PO Q6H #90 tabs 01/28/23 05/06/23 Rx celecoxib 200 mg capsule (Celebrex) 200 mg PO DAILY@0800 #60 caps 01/28/23 05/06/23 Rx vitamin E 1,000 unit tablet 1 tablet PO DAILY 05/06/23 05/06/23 History Allergies Allergy/AdvReac Type Severity Reaction Status Date / Time No Known Allergies Allergy Verified 05/06/23 13:27 Exam Narrative: 61-year-old male he is alert pleasant. Is 5 ft 5179 lb. Range of motion left knee is from 5-140 degrees. He has mild effusion. Moderate medial pseudolaxity. Negative Anat's. 2+ posterior artery pulse palpable no dorsalis pedis pulse. Hip range of motion is full without discomfort negative Stinchfield maneuver. He has normal quad strength. Normal sensation and no edema in left lower extremity. Resp: Auscultation: clear to auscultation bilaterally Cardio: Rate: regular rate Rhythm: regular rhythm Assessment and Plan Assessment and plan (1) Osteoarthritis: Code(s): M19.90 - Unspecified osteoarthritis, unspecified site Status: Acute Plan 61-year-old male who has severe medial compartment osteoarthritis left knee with continued symptoms. Again patient did very well with his right total knee feels he is ready to proceed with the left. Surgical procedure as well as risks and complications were reviewed all questions were answered we will proceed. He will avoid aspirin and ibuprofen products 1 week prior to surgery. We will plan use Eliquis as we did with his previous surgery. His Chem panel was all within normal limits. Creatinine 0.80. Hemoglobin 13.2 and platelets were 268. Nasal swab was negative.
[2023-05-14] MEDS: LACTATED RINGERS 1,000 ML 30 ML IV CONT ×2 (10:19→15:52)
[2023-05-14] MEDS: VANCOMYCIN 1,250 MG/NS 250 ML BAG 166.67 MG IVPB (10:45)
[2023-05-14] MEDS: ACETAMINOPHEN 500 MG TABLET 1000 MG PO ×3 (11:38→23:19)
[2023-05-14] MEDS: TRANEXAMIC ACID 1,000MG/ISO100 1,000 MG/100 ML BAG 200 MG IVPB (11:40)
--- NOTE | 2023-05-14 11:52 | WPDHPUPDATE1 ---
History and Physical Update Update Date/Time: 05/14/23 11:52 History and Physical has been reviewed, including an updated exam of the patient. There are NO changes in the patient's condition. Risks, benefits, and alternatives have been discussed and questions answered. Patient agrees to proceed with procedure.
--- NOTE | 2023-05-14 11:58 | WPDANESEPPF ---
Anes - Initial Pre Proc Eval Procedure: Operation Date: 05/14/23 12:00 Proposed Procedures p Left Total Knee Arthroplasty - Osmany Batres MD Date/Time: 05/14/23 11:58 Surgeon: Osmany Batres MD Pre Op Diagnosis: OA Left Knee Patient Data Age: 63 Gender: M Height: 1.7 m Weight: 85.6 kg Last Vital Signs Temp 97.0 F L 05/14/23 10:23 Pulse 89 05/14/23 10:23 Resp 16 05/14/23 10:23 BP 129/90 05/14/23 10:23 Pulse Ox 99 05/14/23 10:23 O2 Del Method Room Air 05/14/23 10:23 Allergies Allergy/AdvReac Type Severity Reaction Status Date / Time No Known Allergies Allergy Verified 05/14/23 09:49 Home Medications Medication Instructions Recorded Confirmed Type lisinopril 2.5 mg tablet 1.25 mg PO BID 01/09/23 05/14/23 History multivitamin 1 tablet PO DAILY 01/09/23 05/14/23 History omeprazole 20 mg capsule,delayed 20 mg PO QAM 01/09/23 05/14/23 History release rosuvastatin 10 mg tablet 10 mg PO HS 01/09/23 05/14/23 History vit C 250 mg-E 90 mg-zinc 40 1 tablet PO QAM AND QPM 01/09/23 05/14/23 History mg-copper 1 dm-zslyct-idkwlr chew tablet (PreserVision AREDS-2) acetaminophen 500 mg tablet 1,000 mg PO Q6H #90 tabs 01/28/23 05/14/23 Rx celecoxib 200 mg capsule (Celebrex) 200 mg PO DAILY@0800 #60 caps 01/28/23 05/14/23 Rx vitamin E 1,000 unit tablet 1 tablet PO DAILY 05/06/23 05/14/23 History Patient hx anesthesia problems: post op nausea/vomiting Family hx anesthesia problems: none Results Review: All pre-operative results and documents have been reviewed as part of the pre-operative evaluation. [facility] Past Medical History Medical History (Updated 01/26/23 @ 11:01 by Osmany Batres MD) Chronic GERD HTN (hypertension) Hyperlipidemia Obesity Osteoarthritis Social History Social History Smoking status: Never smoker Second hand tobacco smoke exposure: No Additional smoking assessment comments: PT DENIES ALL FORMS OF TOBACCO USE Alcohol intake: current Drinks per week: 2 Substance use: never Substance use type: does not use Lack of Transportation: No Lack of Food: Never True Current Housing: I Have Housing Concerned About Future Housing: No Difficulty Paying Gas/Electric Bills: No Difficulty Paying for Meds: No Currently Unemployed: No Education: Associate Degree Difficulty w/ Childcare or Family Care: No Living arrangements: with family Additional living arrangements comments: Spiritual care concerns: No Anes - Eval Final PreProcedure Day of Procedure 05/14/23 11:58 Patient weight: normal Heart: regular rate and rhythm Lungs: clear to auscultation Airway: Mallampati scale class II Neurological: alert and oriented Last oral intake: >/= 8 hours ASA classification: II Emergent: no Anesthetic plan: proceed Anesthesia type and monitoring: general LMA and standard monitoring Results Review: All pre-operative results and documents have been reviewed as part of the pre-operative evaluation. Informed Consent: The patient's anesthetic plan and its attendant risks and benefits were discussed with the patient/family/POA. Questions were solicited and answers provided to the satisfaction of the patient/family/POA.
[2023-05-14] MEDS: ceFAZolin 2 GM/D5W 50 ML 2 GM/50 ML BAG IVPB (12:08)
[2023-05-14] MEDS: ceFAZolin SODIUM 1 GM VIAL 3 GM (13:39)
[2023-05-14] MEDS: ceFAZolin SODIUM 1 GM VIAL 2 GM IV PUSH (14:44)
[2023-05-14] MEDS: TRANEXAMIC ACID 1,000 MG/10 ML AMPUL 1000 MG IV PUSH (14:44)
--- NOTE | 2023-05-14 15:35 | W.PM.PROC2 ---
Procedure Note - Detailed Date of Procedure 05/14/23 Pre-op Diagnosis OA Left Knee Post-op Diagnosis Same Procedure Performed Left total knee arthroplasty Surgeon Osmany Batres MD Anesthesia General Description of Procedure Patient was brought to the operating room and general anesthesia was administered. He received 2 g Ancef weight based vancomycin 1 g of tranexamic acid preoperatively. Left knee was prepped draped usual fashion. He had about a 5 degree flexion contracture under anesthesia. Limb was exsanguinated tourniquet elevated to 250 mmHg. A 7 in longitudinal midline incision was used and a vastus medialis splitting approach utilized plate vastus medialis of the superior pole patella. Infrapatellar and suprapatellar fat pads were excised the quadriceps synovectomy carried out. He had chondromalacia of the medial facet but the cartilage of the apex and lateral facet was normal and I felt this was suitable for non resurfacing like his other knee. Some small osteophytes removed and a minimal lateral facetectomy was performed. A guide marcia was inserted down the femoral canal after aspiration of canal contents using the 5 degree valgus cutting bushing 9 mm of bone removed the distal femur. This removed equal amounts medially and laterally. Next the tibial plateau was exposed and tibia was cut at 1 degree of varus. He had a pronounced varus slope to his tibial plateau. We made a skim cut removing about a mm bone from the low point of the medial tibial plateau in this removed about 10-,1/2 laterally. Meniscus remnants were excised. Medial tibial osteophyte was removed. PCL was recessed from the femur. The medial side measured 8 mm gap 90? a lateral side 14. The femoral sizing guide was applied at 5? of external rotation which was just degree external to [place] line and posterior referencing pinholes were placed. The 67.5 cutting block applied AP and chamfer cuts were made. The 67.5 just touched the anterior cortex but was too wide. With a 10 degree CR insert slipped and we could see that we were tighter medially than laterally both in flexion and extension. The tibia was sized to a size 71 which fit line to line anteromedial to posterolateral a proper rotation this was punched. Medial and posteromedial osteophytes were more aggressively removed at this time after peeling enough capsule to expose these osteophytes. We trialed with the 10 insert. This had but 0.5 mm play medially 3 mm laterally and flexion and extension there 5? lack of full extension and about 4 mm of play laterally no play medially. Alignment of the tibia was confirmed. With the femoral component too wide I elected to downsize the femur to a 65 and we did so introducing another degree and half of external rotation by removing the medial posterior referencing pin from the block rotating it and pinning the block in place with the threaded spring pins. This allowed the cuts made for the 65 without notching. We trialed again this time with the 11 mm insert and this gave us of mm of gap medial and a mm and half lateral at 90? which is much better balance. And extension we still had a 5 degree flexion contracture. Posterior capsular release was performed. Additional posteromedial osteophyte was removed almost flush with the posteromedial margin of the tibial component and this helped balance in the which then came out to about 2? from full extension but still had a positive bounce. I elected to cut 1 more mm of bone from distal femur. We did this from the medial side only and confirmed the distal femoral cut at 4? of anatomic valgus with a 4 degree wing and on trialing now the knee came out to full extension negative bounce 1 mm medial opening 3 mm lateral opening and appropriate stability throughout range of motion. [place] flexion was 135. Tourniquet had been put down at 90 minutes and after exsanguination of the limb tourniquet was real a beta this time. Panda chinchilla
[2023-05-14] MEDS: ONDANSETRON INJ 4 MG/2 ML VIAL IV PUSH ×2 (16:40→19:36)
--- NOTE | 2023-05-14 17:15 | PC.NURSE ---
This patient, Marvin Domingo, was admitted to [facility] Surg Room 325-01. Patient/family oriented to hospital policies and general routines including ID bracelet, bed and alarms, visiting hours, pain management, procedures, bathroom and other care routines, personal items, smoking policy, room service/diet, and visiting hours. Information on how to activate the Rapid Response Team has been discussed. Patient/Family are encouraged to report perceived risks to care and to ask questions if they do not understand what they are told or what they should do.
[2023-05-14] MEDS: KETOROLAC 15 MG/ML VIAL (*BKC) IV PUSH ×2 (17:39→23:17)
[2023-05-14] MEDS: SENNA/DOCUSATE SODIUM TABLET 2 TAB PO (17:40)
[2023-05-14] MEDS: oxyCODONE HCL (*CRX) 5 MG TAB IR PO ×2 (17:41→21:26)
--- NOTE | 2023-05-14 17:44 | PM.IMCN ---
Assessment and Plan Assessment and plan (1) Localized osteoarthritis of knee: Code(s): M17.10 - Unilateral primary osteoarthritis, unspecified knee Status: Acute (2) HTN (hypertension): Code(s): I10 - Essential (primary) hypertension Status: Acute (3) Osteoarthritis: Code(s): M19.90 - Unspecified osteoarthritis, unspecified site Status: Acute (4) Obesity: Code(s): E66.9 - Obesity, unspecified Status: Acute (5) Chronic GERD: Code(s): K21.9 - Gastro-esophageal reflux disease without esophagitis Status: Acute (6) Hyperlipidemia: Code(s): E78.5 - Hyperlipidemia, unspecified Status: Acute Plan # left knee osteoarthritis -status post elective left knee replacement by Dr. Batres -pain control, bowel regimen, perioperative antibiotics, DVT prophylaxis per Orthopedic team -on celebrex for arthritis -PT/OT consulted -patient had right knee replaced in January # chronic conditions -essential hypertension: Lisinopril 1.25mg BID (hypertensive post-op, may need to increase dose if it does not improve) -GERD: Omeprazole -hyperlipidemia: Rosuvastatin Diet: Regular DVT prophylaxis: maybe start tomorrow?, was given TXA (was on eliquis after last surgery) Code status: Full code Disposition: pending PT eval Thank you for consulting hospitalist service, please call if any questions. HPI Data of Consult Consult date: 05/14/23 Requesting Physician: Osmany Batres MD Primary Care Provider: Milla Eastman Consult Narrative Narrative: Marvin Domingo is a 63 year old male with past medical history of osteoarthritis, obesity, hypertension, hyperlipidemia, GERD presents status post elective left knee arthroplasty by Dr. Batres. Hospitalist service consulted for medical management of chronic conditions. He is doing well with no medical concerns. Previously had right knee arthroplasty 01/27/[address] Batres. He is on Celebrex for his arthritis. Patient was seen postoperatively. He is slightly hypertensive. At home he is on very low-dose lisinopril 1.25 mg b.i.d.. We will resume his home meds however we may need to titrate the lisinopril. Patient received TXA today, for anticoagulation need to start Eliquis tomorrow. Patient denies fever, chills, nausea, vomiting, diarrhea, chest pain, shortness of breath. Review of Systems Review of Systems: Constitutional: No Fever, No Chills, No Night Sweats, No Fatigue, No Malaise ENT/Mouth: No Hearing Changes, No Ear Pain, No Nasal Congestion, No Sinus Pain, No Hoarseness, No sore throat, No Rhinorrhea, No Swallowing Difficulty Eyes: No Eye Pain, No Redness, No Vision Changes Cardiovascular: No Chest Pain, No Palpitations, No Dyspnea on Exertion, No Orthopnea, No Claudication, No Edema Respiratory: No Cough, No Sputum, No Wheezing, No Shortness of Breath Gastrointestinal: No Nausea, No Vomiting, No Diarrhea, No Constipation, No Abdominal Pain, No Heartburn, No Hematochezia, No Melena Genitourinary: No Dysuria, No Urinary Frequency, No Hematuria, No Urinary Incontinence, No Urgency Musculoskeletal: Knee pains, stable Skin: No Skin Lesions, No Pruritis, No Hair Changes Neuro: No Weakness, No Numbness, No Paresthesias, No Loss of Consciousness, No Syncope, No Dizziness, No Headache Psych: No Anxiety/Panic, No Depression, No Insomnia Heme: No Bruising, No Bleeding Lymph: No Adenopathy Endocrine: No Polyuria, No Polydipsia, No Temperature Intolerance PMFSH Past Medical History Medical History Chronic GERD HTN (hypertension) Hyperlipidemia Obesity Osteoarthritis Surgical History Surgical History History of arthroplasty of right knee Family History Family History Mother Pancreatic cancer Father Kidney failure Social Hist
[2023-05-14] MEDS: lisinopriL 2.5 MG TABLET 1.25 MG PO (19:36)
[2023-05-14] MEDS: PROPARACAINE HCL 0.5% 15 ML OPHTH SOLN 1 DROP EACH EYE (20:28)
[2023-05-14] MEDS: ROSUVASTATIN 10 MG TABLET PO (20:28)
[2023-05-14] MEDS: METOCLOPRAMIDE HCL INJ 10 MG/2 ML VIAL IV PUSH (21:18)
[2023-05-14] MEDS: DICLOFENAC SODIUM 0.1% OPHTH SOLN 2.5 ML BOTTLE 1 DROP EACH EYE (21:27)
[2023-05-14] MEDS: ceFAZolin 1 GM/NS 50 ML 1 GM/50 ML BAG IVPB (21:27)
[2023-05-14] MEDS: VANCOMYCIN 1,000 MG/NS 250 ML 1,000 MG/250 ML BAG 250 MG IVPB (22:05)
[2023-05-15] VITALS: BP 121/68; PULSE 100; RESP 12; TEMP 36.3; O2SAT 95
[2023-05-15] MEDS: oxyCODONE HCL (*CRX) 5 MG TAB IR PO ×4 (02:29→13:53)
[2023-05-15 04:00] VITALS: BP 127/90; PULSE 90; RESP 14; TEMP 35.9; O2SAT 97
[2023-05-15] MEDS: ACETAMINOPHEN 500 MG TABLET 1000 MG PO ×2 (06:02→12:31)
[2023-05-15] MEDS: DICLOFENAC SODIUM 0.1% OPHTH SOLN 2.5 ML BOTTLE 1 DROP EACH EYE ×2 (06:03→14:03)
[2023-05-15] MEDS: ARTIFICIAL TEARS OPHTH SOLN 15 ML BOTTLE 1 DROP EACH EYE (06:03)
[2023-05-15] MEDS: ceFAZolin 1 GM/NS 50 ML 1 GM/50 ML BAG IVPB ×2 (06:04→13:54)
[2023-05-15 06:43] LABS: Basophils Percent Auto 0.2 % (0.2-1.2); Eosinophils Percent Auto 0.2 % (0-4.4); Hematocrit 33.9 % (42.0-52.0); Hemoglobin 10.9 g/dL (14.0-18.0); Immature Granulocyte Absolute 0.07 K/mm3 (0.00-0.031); Immature Granulocyte Percent A 0.6 % (0-0.5); Lymphocytes Absolute Auto 1.05 K/mm3 (0.9-3.2); Lymphocytes Percent Auto 8.5 % (18.3-44.2); Mean Corpuscular HGB Conc 32.2 g/dl (32-36); Mean Corpuscular Hemoglobin 26.6 pg (26-34); Mean Corpuscular Volume 82.7 fl (80-100); Monocytes Percent Auto 8.4 % (2.6-8.5); Neutrophils Absolute Auto 10.1 K/mm3 (1.3-6.7); Neutrophils Percent Auto 82.1 % (45.5-73.1); Platelet Count Result 235 k/mm3 (150-375); White Blood Count 12.3 K/mm3 (4.5-10.0)
[2023-05-15 06:57] LABS: Anion Gap 8 mmol/L (8-16); Blood Urea Nitrogen 14 mg/dL (9-20); Calcium 8.4 mg/dL (8.4-10.2); Carbon Dioxide 24 mmol/L (22-30); Chloride 102 mmol/L (98-107); Estimated CRCL calculation 78 ml/min; Estimated Glomerular Filt Rate > 60; Glucose 103 mg/dL (65-110); Potassium 3.9 mmol/L (3.4-5.0); Sodium 134 mmol/L (137-145)
--- NOTE | 2023-05-15 07:32 | PM.PNORT ---
Subjective Subjective Date/Time Seen: 05/15/23 07:32 Interval history: Postop day 1 patient is alert. He is afebrile vital signs are stable. Morning labs are noted. Dressing is dry and intact. Neurovascularly he is intact. Pain is well controlled. He was up overnight to the restroom several times and is comfortable. Plan will be to have the patient work with physical therapy this morning and again this afternoon and then once IV antibiotics have been completed be discharged home early this afternoon. Objective Data Vital Signs Vital Signs: Vital Signs - 24 hr 05/14/23 10:23 05/14/23 15:52 05/14/23 16:06 Temperature 36.1 C L 36.8 C Pulse Rate 89 105 H 99 Respiratory Rate 16 16 15 Blood Pressure 129/90 133/85 129/77 Pulse Oximetry 99 91 91 Oxygen Delivery Room Air Simple Face Mask Simple Face Mask Oxygen Flow Rate 6 6 05/14/23 16:21 05/14/23 16:36 05/14/23 16:50 Temperature Pulse Rate 103 H 101 H 100 Respiratory Rate 14 17 15 Blood Pressure 129/90 120/91 H 123/87 Pulse Oximetry 97 93 96 Oxygen Delivery Simple Face Mask Nasal Cannula Nasal Cannula Oxygen Flow Rate 6 2 2 05/14/23 17:03 05/14/23 17:25 05/14/23 17:40 Temperature 36.1 C L 36.2 C L Pulse Rate 95 97 93 Respiratory Rate 13 18 16 Blood Pressure 129/89 147/101 H 148/94 H Pulse Oximetry 95 93 96 Oxygen Delivery Nasal Cannula Oxygen Flow Rate 2 05/14/23 18:20 05/14/23 17:15 05/14/23 19:20 Temperature 36.0 C L 36.2 C L Pulse Rate 91 96 Respiratory Rate 16 16 Blood Pressure 151/99 H 147/86 H Pulse Oximetry 92 97 96 Oxygen Delivery Nasal Cannula Oxygen Flow Rate 2 05/14/23 20:15 05/14/23 20:48 05/15/23 00:00 Temperature 36.2 C L 36.3 C L Pulse Rate 100 100 Respiratory Rate 15 12 Blood Pressure 146/88 H 121/68 Pulse Oximetry 98 97 95 Oxygen Delivery Oxygen Flow Rate 05/14/23 20:00 05/15/23 04:00 Temperature 35.9 C L Pulse Rate 90 Respiratory Rate 14 Blood Pressure 127/90 Pulse Oximetry 97 Oxygen Delivery Room Air Oxygen Flow Rate Intake/Output Intake/Output: Intake & Output 05/12/23 05/13/23 05/14/23 05/15/23 23:59 23:59 23:59 23:59 Intake Total 550 300 Balance 550 300 Meds/Results Medications: Active Medications Generic Name Dose Route Start Last Admin Trade Name Freq PRN Reason Stop Dose Admin Acetaminophen 1,000 mg 05/14/23 18:00 05/15/23 06:02 Acetaminophen 500 Mg Tablet PO 1,000 mg Q6H LINDA Administration Artificial Tears 1 drop 05/14/23 18:59 05/15/23 06:03 Artificial Tears Ophth Soln 15 Ml Bottle EACH EYE 1 drop Q2H PRN Administration Dry Eye(s) Celecoxib 100 mg 05/15/23 08:00 Celecoxib 100 Mg Capsule PO DAILY@0800 LINDA Diclofenac Sodium 1 drop 05/14/23 22:00 05/15/23 06:03 Diclofenac Sodium 0.1% Ophth Soln 2.5 Ml Bottle EACH EYE 05/18/23 21:59 1 drop Q8HR LINDA Administration Doxycycline Hyclate 100 mg 05/15/23 21:00 Doxycycline Hyclate 100 Mg Tablet PO 05/27/23 20:59 Q12HR LINDA Cefazolin Sodium 1 gm in 50 mls @ 100 mls/hr 05/14/23 22:00 05/15/23 06:04 Ancef 1 Gm/Ns 50 Ml IVPB 05/15/23 14:29 100 mls/hr Q8H LINDA Administration Vancomycin HCl 1,000 mg in 250 mls @ 250 mls/hr 05/14/23 22:00 05/14/23 22:05 Vancomycin 1,000 Mg/Ns 250 Ml IVPB 05/15/23 10:59 250 mls/hr Q12H LINDA Administration Lisinopril 1.25 mg 05/15/23 06:00 05/15/23 06:01 Lisinopril 1.25 Mg Tablet PO 1.25 mg Q12H LINDA Administration Morphine Sulfate 2 mg 05/14/23 17:05 Morphine Sulfate (*Crx) 2 Mg/Ml Inj IV PUSH Q1H PRN Pain Rated 7-10 Multivitamins Therapeutic 1 tablet 05/15/23 09:00 Multivitamins Therapeutic Tab (*Bkc) PO DAILY [facility] Naloxone HCl 0.1 mg 05/14/23 17:05 Naloxone Hcl 0.4 Mg/Ml Vial IV PUSH Q2M PRN Opiate Reversal Ondansetron HCl 4 mg 05/14/23 19:03 05/14/23 19:36 Ondansetron Inj 4 Mg/2 Ml Vial IV PUSH 4 mg Q6H PRN Administration
--- NOTE | 2023-05-15 07:36 | PM.DS ---
DS: Admitting Diagnosis Discharge Date 05/15 Admitting Diagnosis Left knee DJD DS: Discharge Diagnosis Discharge Diagnosis (1) Localized osteoarthritis of knee: Code(s): M17.10 - Unilateral primary osteoarthritis, unspecified knee Status: Acute DS: Summary Hospital Course Hospital Course: 63-year-old male underwent left total knee arthroplasty on 05/14. Underwent the procedure without complications. Postoperatively he has been afebrile vital signs are stable neurovascular is intact. He was to the restroom several times a day of surgery. Pain is well controlled with scheduled Tylenol as well as oxycodone 5 mg. He is also on Celebrex 100 mg a day. He is on Eliquis for DVT prophylaxis. Patient will be discharged home on 05/15. He was advised to keep leg elevated at home to prevent swelling but also do his exercising every hour while awake. Patient had his right knee replaced approximately 4 months ago and is very familiar with the recovery. He will also go home on a 1 week course doxycycline and Senokot and MiraLax. He has outpatient therapy starting next Friday. Patient was advised any questions or concerns he should call the office otherwise we will see him at his appointments. Time Spent with Patient Time attestation: Total time spent providing and/or coordinating discharge services: DS: Data Data Completed and Pending Labs on day of discharge: Labs from last 24 hours 05/15/23 06:09 WBC 12.3 H RBC 4.10 L Hgb 10.9 L Hct 33.9 L MCV 82.7 MCH 26.6 MCHC 32.2 RDW 15.0 H Plt Count 235 MPV 10.0 Immature Gran % (Auto) 0.6 H Neut % (Auto) 82.1 H Lymph % (Auto) 8.5 L [place] % (Auto) 8.4 Eos % (Auto) 0.2 Baso % (Auto) 0.2 Lymph # (Auto) 1.05 [place] # (Auto) 1.0 H Eos # (Auto) 0.0 Baso # (Auto) 0.0 Abs Immat Gran (auto) 0.07 H Absolute Neuts (auto) 10.1 H Absolute Nucleated RBC 0.0 Nucleated RBC % 0.0 Sodium 134 L Potassium 3.9 Chloride 102 Carbon Dioxide 24 Anion Gap 8 BUN 14 Creatinine 0.80 Estim Creat Clear Calc 78 Estimated GFR > 60 Glucose 103 Calcium 8.4 Discharge Plan Discharge Patient Disposition: Home, Self-Care Discharge Instructions: OSMANY BATRES M.D [facility], [facility] [address] [place] [address] POST-OPERATIVE DISCHARGE INSTRUCTIONS TOTAL KNEE ARTHROPLASTY 1. When resting, lie on back with leg elevated above heart to minimize swelling. Significant swelling could indicate a blood clot and if this occurs call the office (or go to the ER) to have a venous ultrasound. 2. Do exercise 5 times a day. 3. Do not sit with leg down except for meals. 4. Wound Care: Nursing will give additional dressings at discharge. Patient to change dressing at home 1 week from surgery, then maintain until seen in office. 5. May shower with dressing in place. 6. Follow weight bearing status instructions. IMPORTANT: Remember not to sit in the chair for more than 30 minutes at a time. As a rule, during the first 14 days after surgery, only sit in the chair to work on the chair knee bending stretch exercise, for meals or for use of the restroom. Sitting in the chair promotes significant swelling in the knee and leg which will make the knee stiff and more painful and which simulates having a blood clot in the veins of the leg. If this type of significant diffuse swelling occurs, an ultrasound at the hospital will be necessary to rule out a blood clot. Be up walking around with the walker for a few minutes every hour while awake and then rest laying on your back on the couch or in bed with your leg elevated on cushions or pillows. Do not rest in the chair. Stand Alone Forms: General Discharge Instructions Follow-up/Referrals: Osmany Batres MD [Physician] - Keep Reg. Scheduled Appt. Discharge Medications: New polyethylene glycol 3350 [Miralax] 17 gram Powder In Packet 17 g PO
[2023-05-15] MEDS: MULTIVITAMINS THERAPEUTIC TAB (*BKC) 1 TABLET PO (09:08)
[2023-05-15] MEDS: CELECOXIB 100 MG CAPSULE PO (09:08)
[2023-05-15] MEDS: polyethylene glycoL 3350 17 GM POWD.PACK PO (09:09)
[2023-05-15] MEDS: SENNA/DOCUSATE SODIUM TABLET 2 TAB PO (09:09)
[2023-05-15] MEDS: PANTOPRAZOLE 40 MG TABLET PO (09:09)
[2023-05-15] MEDS: APIXABAN 2.5 MG TABLET PO (09:09)
[2023-05-15] MEDS: VANCOMYCIN 1,000 MG/NS 250 ML 1,000 MG/250 ML BAG 250 MG IVPB (09:14)
--- NOTE | 2023-05-15 10:28 | WPDANESPN ---
Anes - Prog Note Post-Op Date/Time: 05/15/23 10:28 Cardiovascular status: normal Respiratory status: normal Airway patency: baseline Mental status: baseline Post-Op hydration status: normal Vital Signs: Last Vital Signs Temp 35.9 C L 05/15/23 04:00 Pulse 90 05/15/23 04:00 Resp 14 05/15/23 04:00 BP 127/90 05/15/23 04:00 Pulse Ox 97 05/15/23 04:00 O2 Del Method Room Air 05/15/23 09:06 O2 Flow Rate 2 05/14/23 17:15 Pain Score (VAS): 11/22 I/O: Intake & Output 05/14/23 05/15/23 05/15/23 23:59 07:59 15:59 Intake Total 750 300 780 Balance 750 300 780 Laboratory Tests 05/15/23 06:09 05/15/23 06:09 05/15/23 06:09 WBC 12.3 H RBC 4.10 L Hgb 10.9 L Hct 33.9 L MCV 82.7 MCH 26.6 MCHC 32.2 RDW 15.0 H Plt Count 235 MPV 10.0 Immature Gran % (Auto) 0.6 H Neut % (Auto) 82.1 H Lymph % (Auto) 8.5 L [place] % (Auto) 8.4 Eos % (Auto) 0.2 Baso % (Auto) 0.2 Lymph # (Auto) 1.05 [place] # (Auto) 1.0 H Eos # (Auto) 0.0 Baso # (Auto) 0.0 Abs Immat Gran (auto) 0.07 H Absolute Neuts (auto) 10.1 H Absolute Nucleated RBC 0.0 Nucleated RBC % 0.0 Sodium 134 L Potassium 3.9 Chloride 102 Carbon Dioxide 24 Anion Gap 8 BUN 14 Creatinine 0.80 Estim Creat Clear Calc 78 Estimated GFR > 60 Glucose 103 Calcium 8.4 Post-procedural complaints: none Patient Feedback: Patient satisfied with anesthetic care.
[2023-05-15 10:50] VITALS: BP 123/66; PULSE 97; RESP 22; TEMP 37.3; O2SAT 97
== END 2023-05-15 15:15 | disposition home or self-care (01) ==
LOC: ANHSURGERY 09:39 → ANH3MEDSUR 17:10
PROVIDERS: Visit Provider Orthopaedic Surgery
PROC: (CPT 27447; principal; 2023-05-14 12:00)
DX: M17.12 Unilateral primary osteoarthritis, left knee (principal); I10 Essential (primary) hypertension; E78.5 Hyperlipidemia, unspecified; K21.9 Gastro-esophageal reflux disease without esophagitis; E66.9 Obesity, unspecified; Z68.29 Body mass index [BMI] 29.0-29.9, adult
CPT/HCPCS: 27447; 36415; 73560; 80048; 85025; 97110; 97116; 97161; 97165; 97530; 97535; A9270; C1713; C1776; J0171; J0690; J1100; J1170; J1885; J2250; J2270; J2405; J2704; J2765; J2795; J3010; J3370; J7120